=== PATIENT | male | born 1970 | race Caucasian/White ===

== ENCOUNTER → 2024-08-14 08:08 | Outpatient (REF) | payer BC, SELFPAY ==
[2024-08-14 09:55] LABS: Free T4 1.02 ng/dl (0.78-2.19)
== END ==
LOC: REG 08:08
PROVIDERS: ATTENDING PHYSICIAN Internal Medicine Endocrinology, Diabetes & Metabolism; FAMILY PHYSICIAN Family Medicine
DX: E03.9 Hypothyroidism, unspecified (principal)
CPT/HCPCS: 36415; 84439; 84443

== ENCOUNTER → 2024-10-02 07:23 | Outpatient (REF) | payer BC, SELFPAY ==
[2024-10-02 08:41] LABS: ALT (SGPT) 37 U/L (0-50); AST (SGOT) 39 U/L (17-59); Albumin 3.4 g/dl (3.5-5.0); Alkaline Phosphatase 50 U/L (38-126); Blood Urea Nitrogen 17 mg/dl (9-20); Calcium 8.7 mg/dl (8.4-10.2); Carbon Dioxide 28 mmol/L (22-30); Chloride 102 mmol/L (98-107); Glucose 92 mg/dl (70-99); Potassium 4.2 mmol/L (3.5-5.1); Sodium 137 mmol/L (135-145); Total Bilirubin 0.5 mg/dl (0.2-1.3); Total Protein 6.1 g/dl (6.3-8.2); eGFR > 60.00
[2024-10-02 09:40] LABS: Free T4 1.18 ng/dl (0.78-2.19)
== END ==
LOC: REG 07:23
PROVIDERS: ATTENDING PHYSICIAN Internal Medicine Endocrinology, Diabetes & Metabolism; FAMILY PHYSICIAN Family Medicine
DX: E03.9 Hypothyroidism, unspecified (principal)
CPT/HCPCS: 36415; 80053; 84439; 84443

== ENCOUNTER → 2024-12-03 07:29 | Outpatient (REF) | payer BC, SELFPAY ==
[2024-12-03 10:52] LABS: Free T4 1.32 ng/dl (0.78-2.19)
== END ==
LOC: REG 07:29
PROVIDERS: ATTENDING PHYSICIAN Internal Medicine Endocrinology, Diabetes & Metabolism; FAMILY PHYSICIAN Family Medicine
DX: E03.9 Hypothyroidism, unspecified (principal)
CPT/HCPCS: 36415; 84439; 84443

== ENCOUNTER → 2025-02-07 08:30 | Outpatient (REF) | payer BC, SELFPAY ==
[2025-02-07 10:38] LABS: HDL Cholesterol 47 mg/dl; Triglyceride 255 mg/dl (10-149); Very Low Density Lipoprotein 51 mg/dl (0-30)
[2025-02-07 10:53] LABS: LDL Cholesterol, Calculated 232 mg/dl; Total Cholesterol 330 mg/dl (50-199)
[2025-02-07 11:35] LABS: Free T4 1.21 ng/dl (0.78-2.19)
== END ==
LOC: REG 08:30
PROVIDERS: ATTENDING PHYSICIAN Internal Medicine Endocrinology, Diabetes & Metabolism; FAMILY PHYSICIAN Family Medicine
DX: E03.9 Hypothyroidism, unspecified (principal)
CPT/HCPCS: 36415; 80061; 84439; 84443

== ENCOUNTER → 2025-08-19 07:20 | Outpatient (REF) | payer BC, SELFPAY ==
[2025-08-19 09:16] LABS: Urine Character Clear (Clear)
[2025-08-19 10:02] LABS: ALT (SGPT) 35 U/L (0-50); AST (SGOT) 48 U/L (17-59); Albumin 2.7 g/dl (3.5-5.0); Alkaline Phosphatase 44 U/L (38-126); Blood Urea Nitrogen 17 mg/dl (9-20); Calcium 8.5 mg/dl (8.4-10.2); Carbon Dioxide 30 mmol/L (22-30); Chloride 105 mmol/L (98-107); Glucose 94 mg/dl (70-99); HDL Cholesterol 51 mg/dl; Magnesium 2.0 mg/dl (1.6-2.3); Potassium 4.3 mmol/L (3.5-5.1); Sodium 135 mmol/L (135-145); Total Protein 5.5 g/dl (6.3-8.2); Very Low Density Lipoprotein 37 mg/dl (0-30); eGFR > 60.00
[2025-08-19 10:06] LABS: Urine Squamous Cell 0-2 /LPF (Few)
[2025-08-19 10:07] LABS: Urine White Cell 0-2 /HPF (0-5)
[2025-08-19 10:16] LABS: LDL Cholesterol, Calculated 309 mg/dl
[2025-08-19 10:25] LABS: TSH 14.80 uIU/ml (0.47-4.68)
== END ==
LOC: REG 07:20
PROVIDERS: ATTENDING PHYSICIAN Internal Medicine Endocrinology, Diabetes & Metabolism; FAMILY PHYSICIAN Family Medicine
DX: E03.9 Hypothyroidism, unspecified (principal); R25.2 Cramp and spasm
CPT/HCPCS: 36415; 80053; 80061; 81003; 81015; 82550; 83735; 84439; 84443

== ENCOUNTER → 2025-08-23 07:25 | Outpatient (REF) | payer BC, SELFPAY ==
[2025-08-23 08:20] LABS: Urine Character Clear (Clear)
[2025-08-23 08:32] LABS: Urine Squamous Cell 0-2 /LPF (Few)
[2025-08-23 08:33] LABS: Urine White Cell 0-2 /HPF (0-5)
[2025-08-23 08:52] LABS: ALT (SGPT) 32 U/L (0-50); AST (SGOT) 34 U/L (17-59); Albumin 2.7 g/dl (3.5-5.0); Alkaline Phosphatase 45 U/L (38-126); Blood Urea Nitrogen 13 mg/dl (9-20); Calcium 8.7 mg/dl (8.4-10.2); Carbon Dioxide 28 mmol/L (22-30); Chloride 104 mmol/L (98-107); GGTP 13 U/L (15-73); Glucose 98 mg/dl (70-99); LDH 202 U/L (120-246); Potassium 4.2 mmol/L (3.5-5.1); Sodium 134 mmol/L (135-145); Total Protein 5.6 g/dl (6.3-8.2); eGFR > 60.00
[2025-08-23 09:02] LABS: C-Reactive Protein < 5.00 mg/L (0.0-10.00)
[2025-08-23 09:14] LABS: TSH 17.00 uIU/ml (0.47-4.68)
[2025-08-25 03:29] LABS: ANA, IgG Reflex to HEp-2 None Detected (None Detected)
== END ==
LOC: REG 07:25
PROVIDERS: ATTENDING PHYSICIAN Internal Medicine Endocrinology, Diabetes & Metabolism; FAMILY PHYSICIAN Family Medicine
DX: E03.9 Hypothyroidism, unspecified (principal); R25.2 Cramp and spasm; E88.09 Other disorders of plasma-protein metabolism, not elsewhere classified
CPT/HCPCS: 36415; 80053; 81003; 81015; 82085; 82550; 82570; 82977; 83615; 84156; 84443; 85652; 86038; 86140; 86160

== ENCOUNTER → 2025-09-11 08:31 | Outpatient (REF) | payer BC, SELFPAY ==
[2025-09-11 09:51] LABS: Hematocrit 51.8 % (39.0-52.0); Hemoglobin 17.5 g/dL (13.0-18.0); Mean Corp Hgb Conc. 33.8 g/dL (33.0-37.0); Mean Corpuscular Volume 86.0 fL (80.0-94.0); Nucleated Red Blood Cells % 0 % (-); Platelet Count 329 10^3/uL (130-400); Red Cell Dist. Width 13.2 % (11.5-14.5)
[2025-09-11 09:54] LABS: INR 0.92; PT 12.8 Sec (11.4-14.6)
[2025-09-11 10:17] LABS: 24 Hour Urine Total Volume 3000 ml
[2025-09-12 14:42] LABS: Hepatitis B Surface Antigen Negative (Negative)
[2025-09-12 15:00] LABS: Hepatitis C Antibody Negative (Negative)
[2025-09-12 15:24] LABS: Albumin 3.1 g/dl (3.5-5.0); Blood Urea Nitrogen 13 mg/dl (9-20); Calcium 9.1 mg/dl (8.4-10.2); Carbon Dioxide 27 mmol/L (22-30); Chloride 104 mmol/L (98-107); Glucose 101 mg/dl (70-99); Potassium 4.5 mmol/L (3.5-5.1); Sodium 135 mmol/L (135-145); eGFR > 60.00
[2025-09-13 06:00] LABS: ANA, IgG Reflex to HEp-2 None Detected (None Detected)
[2025-09-13 10:43] LABS: Glomerular Base Membrane Ab 0 AU/mL (0-19); Serine Protease-3, IgG 0 AU/mL (0-19)
[2025-09-14 00:11] LABS: Phospholipase A2 Receptor, IgG <1:10 (<1:10)
== END ==
LOC: REG 08:31
PROVIDERS: ATTENDING PHYSICIAN Internal Medicine Nephrology; FAMILY PHYSICIAN Family Medicine
DX: N18.2 Chronic kidney disease, stage 2 (mild) (principal)
CPT/HCPCS: 36415; 80069; 81050; 82570; 82784; 83516; 83521; 84155; 84156; 84165; 85025; 85610; 86038; 86160; 86255; 86334; 86803; 87040; 87340; 87389